=== PATIENT | female | born 1960 | race Caucasian/White ===

== ENCOUNTER → 2017-02-18 | Outpatient (CLI) | payer OTHER ==
[~2017-02-18] MED LIST: CHOL2000 PO; CLON0.2T PO; GLC/500 PO; LEVO50TA6 PO
--- NOTE | 2017-02-18 15:42 | MAMMOGRAPHY REPORT ---
BILATERAL DIGITAL SCREENING MAMMOGRAM TOMOSYNTHESIS WITH CAD: 02/18/2017 CLINICAL HISTORY: Routine screening. TECHNIQUE: Breast tomosynthesis in addition to standard 2D mammography was performed. Current study was also evaluated with a Computer Aided Detection (CAD) system. COMPARISON: Comparison is made to exams dated: 02/08/2016 ultrasound, 02/08/2016 mammogram, 01/26/2016 m ammogram, 01/24/2015 mammogram - [facility], and 07/03/2010 mammogram. BREAST COMPOSITION: There are scattered areas of fibroglandular density in both breasts. FINDINGS: There is stable focal asymmetry in the left upper outer quadrant. No new suspicious mass, architectural distortion or cluster of microcalcifications is seen. IMPRESSION: ACR BI-RADS CATEGORY 1: NEGATIVE There is no mammographic evidence of malignancy. A 1 year screening mammogram is recommended. The pa tient will receive written notification of the results. Approximately 10% of breast cancers are not detected with mammography. A negative mammographic report should not delay biopsy if a clinically suggestive mass is present. Julissa Luz M.D. ay/:02/18/2017 14:43:36 Plant Sprayer: Kristy Abel RT(R)(M), [facility] letter sent: Normal 1/2 BI-RADS Code: ACR BI-RADS Category 1: Negative
== END | disposition home or self-care (01) ==
LOC: C.MAMM 14:05
PROVIDERS: ATTEND Family Medicine
DX: Z12.31 Encounter for screening mammogram for malignant neoplasm of breast (principal)

== ENCOUNTER → 2017-03-21 | Outpatient (CLI) | payer OTHER | END | disposition home or self-care (01) | LOC: C.LAB 11:24 | PROVIDERS: ATTEND Family Medicine | DX: E03.9 Hypothyroidism, unspecified (principal) ==

== ENCOUNTER → 2017-09-24 | Outpatient (CLI) | payer OTHER ==
--- NOTE | 2017-09-24 12:53 | DIAGNOSTIC IMAGING REPORT ---
TRANSVAG-FEMALE PELVIS HISTORY: 56 years-old Female FIBROIDS, INTRAMURAL fibroid uterus seen on comparison CT. The patient is reportedly postmenopausal. COMPARISON: CT abdomen and pelvis 09/11/2017 TECHNIQUE: Multiple real-time sonographic images of the deep pelvic structures were obtained transabdominally and transvaginally assessing grayscale appearance, color and spectral flow FINDINGS: TRANSABDOMINAL: Retroflexed uterus measures 7.7 x 4.2 x 3.9 cm. TRANSVAGINAL: Nabothian cysts are noted in addition to calcifications of the endometrial canal of the lower uterine segment. Uterus measures 7.0 x 4.3 x 6.0 cm and is retroflexed. The endometrium is thickened and heterogeneous, 1.2 cm. Multiple fibroids are noted throughout the uterus, most of which appear to be intramural measuring up to 2.1 cm. Fibroid near the uterine fundus measuring up to 1.6 cm may be subserosal. No definite submucosal fibroids identified. The bilateral ovaries are not diagnostically visualized. No adnexal mass lesions or significant free pelvic fluid. IMPRESSION: 1. Heterogeneously thickened endometrium measuring 1.2 cm is considered pathologic in a postmenopausal patient. Correlation with hysteroscopy and tissue sampling is recommended to exclude endometrial hyperplasia or endometrial carcinoma. 2. Fibroid uterus with most of the fibroids appearing to be intramural. 3. Nonvisualization of the bilateral ovaries. The above report was generated using voice recognition software. It may contain grammatical, syntax or spelling errors. Electronically signed by: José Miguel Miranda M.D. 09/24/2017 12:51 PM Dictated Date/Time: 09/24/2017 12:47 PM
== END | disposition home or self-care (01) ==
LOC: C.ULTR 11:27
PROVIDERS: ATTEND Physician Assistant
DX: D25.1 Intramural leiomyoma of uterus (principal)

== ENCOUNTER → 2017-10-09 | Outpatient (CLI) | payer OTHER | END | disposition home or self-care (01) | LOC: C.PATHSPEC 16:14 | PROVIDERS: ATTEND Obstetrics & Gynecology | DX: N85.8 Other specified noninflammatory disorders of uterus (principal) ==

== ENCOUNTER → 2018-02-07 | Outpatient (CLI) | payer OTHER ==
[~2018-02-07] MED LIST changes: -CLON0.2T PO; -GLC/500 PO; +LEVO25TA PO; -LEVO50TA6 PO; +SPIR50TA2 PO
== END | disposition home or self-care (01) ==
LOC: C.LAB 15:37
PROVIDERS: ATTEND Internal Medicine Endocrinology, Diabetes & Metabolism
DX: E55.9 Vitamin D deficiency, unspecified (principal); E03.9 Hypothyroidism, unspecified

== ENCOUNTER → 2018-03-11 | Outpatient (CLI) | payer OTHER ==
--- NOTE | 2018-03-11 15:13 | MAMMOGRAPHY REPORT ---
BILATERAL DIGITAL SCREENING MAMMOGRAM TOMOSYNTHESIS WITH CAD: 03/11/2018 CLINICAL HISTORY: Routine screening. Patient has no complaints. TECHNIQUE: The study was acquired using full field digital technology and interpreted from soft copy. Breast tomosynthesis in addition to standard 2D mammography was performed. Current study was also ev aluated with a Computer Aided Detection (CAD) system. COMPARISON: Comparison is made to exams dated: 02/18/2017 mammogram, 02/08/2016 mammogram, 01/26/2016 ma mmogram, 01/24/2015 mammogram - [facility], and 07/03/2010 mammogram. BREAST COMPOSITION: There are scattered areas of fibroglandular density in both breasts. FINDINGS: The parenchymal pattern is unchanged. No developing mass, architectural distortion or cluster of susp icious microcalcifications is seen in either breast. IMPRESSION: ACR BI-RADS CATEGORY 2: BENIGN There is no mammographic evidence of malignancy. A 1 year screening mammogram is recommended.( [id number]) The patient will receive written notification of the results. Some breast cancers are not detected with mammography. A negative mammographic report should not alexia y biopsy if a clinically suggestive mass is present. Julissa Luz M.D. ay/:03/11/2018 14:59:48 Ballet Dancer: RT Braxton(Clarence)(Priscilla)(BD), [facility] letter sent: Normal 1/2 BI-RADS Code: ACR BI-RADS Category 2: Benign
== END | disposition home or self-care (01) ==
LOC: C.MAMM 11:45
PROVIDERS: ATTEND Family Medicine
DX: Z12.31 Encounter for screening mammogram for malignant neoplasm of breast (principal)